=== PATIENT | female | born 1940 | race Caucasian/White ===

== ENCOUNTER 2019-08-01 20:37 | Inpatient (IN) | payer OTHER ==
[~2019-08-01] VITALS: Ht 160 cm; Wt 78.4 kg
[~2019-08-01 20:37] MED LIST: ACETASOL HC OTI10 M1 OT; DIFLUCAN200 MG PO; FENTANYL PATCH75 MCG TRANSDERM; INDERAL LA120 M1 PO; INDERAL60 MG PO; PERCOCET PO; PRAVACHOL40 MG PO; PROAIR RESPICL90 MCG IH; ST. JOSEPH ASPI81 M1 PO; TRIAMTERENE-HC1 EAC2 PO; VENLAFAXIN75 MG/1 T2 PO; XANAX 0.25 MG0.25 MG PO
[2019-08-01] MEDS ORDERED: TRAZODONE HCL50 MG PO (21:27)
[2019-08-01] MEDS ORDERED: FISH OIL 1,0001 EAC9 PO (21:28)
[2019-08-01] MEDS ORDERED: SIMVASTATIN40 MG PO (21:28)
[2019-08-01] MEDS ORDERED: COLACE100 MG PO (21:29)
[2019-08-01] MEDS ORDERED: MIRALAX17 GM PO (21:30)
[2019-08-01] MEDS ORDERED: DAILY VITE1 EACH PO (21:31)
[2019-08-01 22:00] VITALS: BP 162/67
[2019-08-01] MEDS ORDERED: CARAFATE 1 GM TA1 GM PO (22:37)
[2019-08-01] MEDS ORDERED: ZOLOFT25 MG PO (22:38)
[2019-08-01] MEDS ORDERED: ONDANSETRON HCL4 M3 PO (22:38)
[2019-08-01] MEDS ORDERED: ZYPREXA 5 MG TAB5 M2 PO (22:39)
[2019-08-01] MEDS ORDERED: NORVASC 2.5 MG2.5 M1 PO (22:40)
[2019-08-01] MEDS ORDERED: PROTONIX40 M2 PO (22:40)
[2019-08-01] MEDS ORDERED: VOLTAREN GEL 1100 G1 TOP (22:41)
[2019-08-01] MEDS ORDERED: DURAGESIC1 EAC4 TOP (22:42)
[2019-08-01] MEDS ORDERED: DIFLUCAN200 MG PO (22:43)
[2019-08-01] MEDS ORDERED: LAMICTAL100 MG PO (22:45)
[2019-08-01] MEDS ORDERED: PRAVACHOL40 MG PO (22:46)
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
[2019-08-02 07:41] VITALS: BP 185/63
--- NOTE | 2019-08-02 10:40 | NUR ---
0700 ASSUMED CARE OF PATIENT. PATIENT SITTING IN DAYROOM AT THAT TIME. 0730 PATIENT WALKING TO DAYROOM FROM PATIENTS ROOM AND WHEN MANAGER PRIMARY CARE STOPS TO TALK TO PATIENT, PATIENT STARTS TO CRY STATING "SORRY, IM NAUSEATED AND I KNOW I DID THIS TO MYSELF". "I ALLOWED TO LET THE NOISE OF THE STAFF AND TV IN THE DAYROOM GET TO ME". PATIENT SAYS THE STAFF WAS LAUGHING AND THE TV WAS REAL LOUD. MANAGER PRIMARY CARE AMB WITH PATIENT TO DAYROOM AND SITS AND TALKS WITH PATIENT. PATIENT RATES ANXIETY AT A 8 BUTHAS BEEN WAKING UP LIKE THIS EVERYDAY X1 WEEK. VOICED BEING DEPRESSED DUE TO SON AND BROTHER PASSING AND DAUGHTER LIVES IN [place] AND WILL NOT COME DOWN HERE. PATIENT IS UPSET AND WANTS TO TALK TO RESIDENTIAL GREEN BUILDING DESIGNER. RESIDENTIAL GREEN BUILDING DESIGNER NOTIFIED.
--- NOTE | 2019-08-02 11:30 | NUR ---
Nutrition: Pt admitted with major depressive disorder, SI. Seen due to high risk screen for poor intake, weight loss. Weight loss reported of 2% in 3 weeks. Not significant and current BMI 30.8. obesity class 1. Pt reports struggling with nausea in the am so unable to eat breakfast-on nausea. Did refuse breakfast this am. High opioid dependency. New admit, No H&P yet. Eats 2 meals/day, likes sandwiches. Discussed ordering meals and available choices as desired. Likes the meals served today. Refuses offer of supplements. RD will follow intake and weight trends but place as low risk d/t no planned interventions at present.
--- NOTE | 2019-08-02 11:39 | NUR ---
PATIENT CONCERNED OF BELONGINGS INCLUDING MONEY, DEBIT CARD AND LICENSE. SUPERVISOR PIPE MANUFACTURE LOOKED IN CHART AND A RECIEPT WAS IN CHART SHOWING ITEMS HAVE BEEN SENT TO SECURITY. SUPERVISOR PIPE MANUFACTURE TOOK RECIEPT TO PATIENT TO SHOW HER SHE HAS BEEN ANXIOUS ABOUT KNOWING WHERE HER ITEMS WERE. PATIENT SMILED AND HAPPY THAT WAS INFORMED ABOUT BELONGING. PATIENT SITTING ON COUCH QUIETLY AT THIS TIME.
--- NOTE | 2019-08-02 14:29 | NUR ---
SPARKLE received a phone call from Yaima Echavarria with [facility] stating that pt should not return home alone because it is unsafe. SPARKLE contacted her and was told that pt has a casemanager with [facility] named Diaz and that he has been with her a long time. She gave SW the number of [phone]. SPARKLE called given number and was told Diaz is no longer with the agency, but instead, her classification case manager is now Marycruz Pierson. SPARKLE left a for her. SW team will continue to follow pt during her stay on this unit.
--- NOTE | 2019-08-02 15:08 | NUR ---
[phone] Thalia attended and was an active participatant in group today. Karina from [facility] lead the group.
[2019-08-02 15:30] VITALS: BP 146/62
--- NOTE | 2019-08-02 15:30 | NUR ---
PT ATTENDED GROUP AT [phone]. PT LISTENING TO PROBATION AND PATROL AGENT AND SMILING.
[2019-08-02 19:59] VITALS: BP 161/59
[2019-08-02 23:10] VITALS: BP 161/59
--- NOTE | 2019-08-03 01:34 | NUR ---
Nursing note made by this nurse for this shift. However, note was made ad an addendum to previous note made by JOSE DE JESUS Castaneda at 1530.
[2019-08-03 08:40] VITALS: BP 189/73
[2019-08-03 11:00] VITALS: BP 143/49
--- NOTE | 2019-08-03 14:12 | NUR ---
Lying supine in bed. Alert and orientated X3. Denies SI/HI. Stated pain in back and shoulder was a 7 prior to fentanyl patch being replaced. Anxious at times but most of the time she is sitting in day room without s/o distress. Participating in groups. Breath sounds clear t/o, bilaterally equal. Reg HR auscultated. Color pink with brisk capillary refill and palpable peripheral pulses. +2 edema to lower extremities. Voiding independently. Active bowel sounds over soft, rounded abdomen. Steady gait when using walker to ambulate. BP repeated d/t HTN.
[2019-08-03 15:23] VITALS: BP 116/66
[2019-08-03 20:02] VITALS: BP 144/48
--- NOTE | 2019-08-03 20:56 | NUR ---
Care assumed of patient at 1915: Patient seated in dayroom, watching TV at start of shift. Patient smiling and waving staff as they arrive on unit. Patient appears calm, pleasant and cooperative. Patient has abnormal tremors to head which are baseline for this patient. Patient alert and oriented x4. Patient reports that she had a good day. Did request her PRN Xanax, reporting anxiety 12/05. Patient reports that she had a good visit with MD. Reports that the MD told her that she "can't change her daughter but can change herself". This seems to have made a large impact on patient and has given her multiple things to process. Patient denies SI/HI/AH/VH at this time. Reports that she "said some horrible things" before she arrived. No longer wishes to act on these statements. Denies depression. Reports chronic pain but does not want any medication for it at this time. Took HS medication whole without difficulty. Ate 100% HS snack. Currently seated in dayroom.
--- NOTE | 2019-08-04 07:40 | NUR ---
0710 ASSUMED CARE OF PATIENT. 0730 PATIENT SITTING IN DAYROOM ON COUCH WATCHING TV. PATIENT IS CALM, NOTED TREMORS TO HEAD, DENIES SI/HI/AH/VH, LUNG SOUNDS CLEAR, C/O PAIN TO BACK OF HEAD AND SHOULDERS RATES 7 ON NUMERIC PAIN SCALE. STATES ANXIETY IS BAD AND REQUESTS ANIETY MEDICATION. PATIENT STATES GOAL FOR THE DAY IS TO BE MORE INVOLVED IN GROUPS. PATIENTS CONCERN IS THAT SHE GETS NAUSEATED AT TIMES AND IS VERY UPSET IN REGARDS TO DAUGHTER NOT COMING TO SEE HER. WILL CONTINUE TO OBSERVE FOR BEHAVIORS.
[2019-08-04 08:51] VITALS: BP 159/68
[2019-08-04 19:10] VITALS: BP 120/60
--- NOTE | 2019-08-05 04:56 | NUR ---
ASSUMED CARE OF PT AT 1900HRS. ASSESSMENTS CHARTED. PT TOOK ALL PO MEDS WHOLE. PT DENIED SI/HI/AH/VH. PT REPORTED SOME ANXIETY AND PRN MEDS WERE GIVEN. PT DENIES ANY PAIN, NAUSEA OR SOA AT THIS TIME. PT WAS ABLE TO GO TO BED AT A DECENT HOUR AND APPEARED TO BE RESTING MOST OF THE NIGHT. VSS AND NO S/S OF ACUTE DISTRESS. WILL CONTINUR TO MONITOR.
[2019-08-05 07:59] VITALS: BP 155/52
--- NOTE | 2019-08-05 09:11 | NUR ---
SW completed a chart review and pt will likely need AL with Medicaid and these are limited
--- NOTE | 2019-08-05 10:45 | NUR ---
0700 ASSUMED CARE OF PATIENT. PATIENT IN BED AT THAT TIME. 0730 PATIENT UP AND GETTING READY TO COMEOUT TO DAYROOM FOR BREAKFAST. 0850 PATIENT C/O PAIN AND REQUESTS PAIN MED WITH OTHER MEDS. RATES PAIN A 8 ON NUMERIC PAIN SCALE. OXYCODONE 1 TAB PO GIVEN. PATIENT DOES ATTEND GROUP THIS AM.
--- NOTE | 2019-08-05 14:43 | NUR ---
CATRACHITA met with pt regarding placement and she would like to move into an [place]. CATRACHITA called a few places while pt was present and the options and amenities are what the pt wants. Catrachita then called Trey pt's friend [phone] and requested that she call the [place] and make appts to see them when this pt discharges later this week. Trey offered to set these up and will email any applications to this worker sot eh pt can fill them out and get ready. Pt will likely d/c back to her home and will assist with the move to [place]. Pt will need a psych Dr and therapist to see post discharge. CATRACHITA then called Miranda at [facility] [phone] and left a VM.
--- NOTE | 2019-08-05 15:10 | NUR ---
SPARKLE spoke with Miranda LEARY from [facility] and she stated that there is a f/u with pt at her home 08/11 at 11AM, Dr Everette Inman [facility] [place] [facility] [address] [place] [phone]. 08/13 at 11:15 AM for meds review. SPARKLE will FAX d/c summary and orders [phone].
--- NOTE | 2019-08-05 18:36 | NUR ---
PT HAS BEEN CALM AND COOPERATIVE TODAY. FAMILY HERE TO VISIT TODAY, WITH NIECE TAKING MAILBOX LIEBERMAN FROM PATIENTS PURSE WITH PATIENTS CONCENT. PATIENT CONTENT WATCHING TV AND COMMUNICATING WITH OTHER PATIENTS.DENIES NEEDS THIS EVENING
[2019-08-05 19:30] VITALS: BP 137/58
--- NOTE | 2019-08-06 04:47 | NUR ---
Assumed care of pt @ 1900. Pt calm et cooperative this shift. Ambulates the halls ad carlitos with assistance of walker et steady gait. Took medications whole without difficulty. Socialized with peers in dayroom until HS. Denies SI/HI this shift. VSWNL. Health assessment with no abnormalities other than previously documented. Requested PRN Oxycodone for pain. Currently resting in bed with eyes closed. Will continue to monitor per protocol.
[2019-08-06 09:10] VITALS: BP 159/62
--- NOTE | 2019-08-06 10:27 | NUR ---
Pt is currently on a waitlist for counseling services at [facility] per Sayra Roberts [phone].
--- NOTE | 2019-08-06 11:46 | NUR ---
Up ambulating in unit without s/o distress. Alert and orientated X4. Denies SI/HI. Ranks pain 6-7/10, fentanyl patch replaced. Calm and cooperative, participating in groups. Smiling and interactive. Ambulates with walker with steady gait. Breath sounds clear t/o, bilaterally equal. Reg HR auscultated. Color pink with brisk capillary refill and palpable peripheral pulses. Independent with voiding. Active bowel sounds over soft, rounded abdomen. 1045 Requesting oxycodone, states she knows that she can have one at this time. No s/o distress. Ranks pain 6-7. 1145 In dining room, visiting. States pain decreased to 3-4. No s/o distress.
--- NOTE | 2019-08-06 12:08 | NUR ---
Catrachita called and left a VM with Inga at [facility] [phone].
--- NOTE | 2019-08-06 15:16 | NUR ---
SPARKLE spoke with Sayra at [facility] [phone], FAX [phone] ATTN Sayra Echevarria and she stated that this pt woul dmove up the list for therapy when she d/c.
[2019-08-06 16:48] VITALS: BP 124/56
[2019-08-06 19:50] VITALS: BP 128/50
[2019-08-06 22:28] VITALS: BP 128/50
[2019-08-06 22:45] VITALS: BP 128/50
--- NOTE | 2019-08-07 00:42 | NUR ---
Assumed care of patient at change of shift. Pt. was sitting in TV room conversing with peers and watching TV. Pt. was asked if she minded this nurse completing her assessment in day room. She said "no". Assessment completed. Tremors noted to hands and head. These seem to worsen when she speaks or attempts to take medication. Pt. currently rates pain at 2/10 and no signs or symptoms of distress noted. 1+ BLE edema noted. Propanolol 20 mg. held due to pulse being 61. Pt. was informed of this and education done regarding med's affect on heart rate. She requested and was given xanax po for sleep at approximately 2200. Pt. acknowledges that she made statements regarding SI prior to hospitalization but she currently denies any SI. She also denies HI and hallucinations. Education also done regarding Fentanyl patch and pain control. .
--- NOTE | 2019-08-07 12:20 | NUR ---
CATRACHITA called and spoke with [facility] regarding housing and they have availabilty, and SW recieved the appliation. Whenpt was approached with this information she stated she wasn't sure she wanted to move. Catrachita reported this to Trey and suggested that this be encouraged. Catrachita also spoke with Yaima at [facility] and reported on the d/c plans and Yiama was satisfied with this outcome. Pt will d/c home on 08/07 at 10 am. Family to transport.
[2019-08-07 13:14] VITALS: BP 146/73
[2019-08-07 15:02] VITALS: BP 146/73
--- NOTE | 2019-08-07 15:17 | NUR ---
ASSUMED CARE AT 0700 THIS MORNING. HAS BEEN PLEASANT AND COOPERATIVE WITH STAFF THIS MORNING. TOOK MEDICATIONS WITHOUT PROBLEMS NOTED. WENT TO GROUPS AND ATE ON THE UNIT. DENIES SI/HI OR AVH. TALKING ABOUT LEAVING TOMORROW TO HOME.
[2019-08-07] MEDS ORDERED: ZOLOFT100 MG PO (17:05)
[2019-08-07 20:10] VITALS: BP 151/61
[2019-08-07 20:40] VITALS: BP 151/61
--- NOTE | 2019-08-08 05:51 | NUR ---
PATIENT UP IN DAY ROOM TONIGHT UNTIL BED. SHE WAS VERY PLEASANT AND COOPERATIVE AND HAPPY THAT SHE IS DISCHARGING TODAY. SHE STATES SHE FEELS STRONGER AND FEELS SHE HAS RECEIVED TREATMENT THAT HAS BEEN HELPFUL. SHE STATES THAT SHE HAS A TENDANCY TO ISOLATE SO SHE FOUND A COMMUNITY CENTER CALLED [facility] THAT MEETS AT [facility] AND PROVIDES ACTIVITIES, AND LUNCH THAT SHE IS WANTING TO VISIT WHEN SHE GETS OUT. ENCOURAGED HER TO SHARE WITH THIS INFO FOR FUTURE RESOURCES. PATIENT HAS BEEN SLEEPING THRU THE NIGHT. DENIES PAIN. BED IN LOW POSITION WITH ROUTINE ROUNDING FOR SAFETY ASSESSMENT.
[2019-08-08 08:59] VITALS: BP 177/54
[2019-08-08 09:14] VITALS: BP 177/54
--- NOTE | 2019-08-08 09:22 | NUR ---
SPARKLE faxed d/c summary and orders to Ihsan, JACKIE and YULISA. Provided pt with handout. Packet completed and left on chart. FAX confirmation with fax packet left on chart. Provided pt with application fr [facility] if needed.
[2019-08-08 09:49] VITALS: BP 177/54
--- NOTE | 2019-08-08 11:00 | NUR ---
ASSUMED CARE AT 0700 THIS MORNING. PT. WAS UP, DRESSED AND IN THE DINING ROOM. SHE IS PLEASANT AND COOPERATIVE. SHE CONTINUES TO HAVE TREMORS OF THE HEAD AND HANDS THAT INCREASES WHEN SHE IS TALKING. SHE TOOK HER MEDICATIONS THIS MORNING WITHOUT DIFFICULTY. SHE REQUESTED A XANAX. SHE WAS UPSET WITH HAVING TO WAIT FOR THE MEDICATION. SHE IS TO DISCHARGE THIS MORNING. SHE TOOK A SHOWER. HER FAMILY ARRIVED AT 1000 THIS MORNING AND WAS UPSET THAT DR. CLARK WAS HERE SOON THEY ARRIVED. SHE CAME IN SEVERAL MINUTES AFTER THEY ARRIVED. THEY WERE TAKEN TO THE SMALL CONFRENCE ROOM AND TEACHING COMPLETED WITH . CALLED THE PT. PHARMACY. AND GOT HER DISCHARGE MEDICATIONS ARANGED. THE FAMILY LEFT WITH THE PT. IN A W/C, STAFF GELATIN MAKER UTILITY TOOK THE PT. TO THE FAMILY CAR INFRONT OF THE HOSPITAL. THEY ALL LEFT WITH HER BELONGINGS, HER DISCHARGE PAPERS, SCRIPTS DEEMED NECESSARY. THEY LEFT FOR THE FAMILY HOME AT 1045.
== END 2019-08-08 11:13 | disposition home or self-care (01) | DRG 881 ==
LOC: SBH 20:37
PROVIDERS: ADMIT Psychiatry & Neurology Psychiatry
DX: F32.9 Major depressive disorder, single episode, unspecified (principal); F11.20 Opioid dependence, uncomplicated; R45.851 Suicidal ideations; F41.9 Anxiety disorder, unspecified; E78.5 Hyperlipidemia, unspecified; I10 Essential (primary) hypertension; Z96.659 Presence of unspecified artificial knee joint; G43.909 Migraine, unspecified, not intractable, without status migrainosus; Z88.6 Allergy status to analgesic agent; Z88.0 Allergy status to penicillin; Z88.8 Allergy status to other drugs, medicaments and biological substances; Z79.82 Long term (current) use of aspirin; Z79.899 Other long term (current) drug therapy; Z98.49 Cataract extraction status, unspecified eye; Z81.8 Family history of other mental and behavioral disorders
CPT/HCPCS: 10880

== ENCOUNTER 2019-08-17 23:43 | Inpatient (IN) | payer OTHER ==
[~2019-08-17] VITALS: Ht 160 cm; Wt 74.1 kg
[~2019-08-17 23:43] MED LIST changes: +CARAFATE 1 GM TA1 GM PO; +COLACE100 MG PO; +DAILY VITE1 EACH PO; +DURAGESIC1 EAC4 TOP; +FISH OIL 1,0001 EAC9 PO; +LAMICTAL100 MG PO; +MIRALAX17 GM PO; +NORVASC 2.5 MG2.5 M1 PO; +ONDANSETRON HCL4 M3 PO; +PROTONIX40 M2 PO; +SIMVASTATIN40 MG PO; +TRAZODONE HCL50 MG PO; +VOLTAREN GEL 1100 G1 TOP; +ZOLOFT100 MG PO; +ZOLOFT25 MG PO; +ZYPREXA 5 MG TAB5 M2 PO
[2019-08-18 01:01] VITALS: BP 145/49
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
[2019-08-18 07:18] VITALS: BP 175/67
[2019-08-18 09:36] VITALS: BP 176/67
--- NOTE | 2019-08-18 12:28 | NUR ---
ASSUMED CARE OF PT AT 0700. PT AWAKE AND ALERT, LYING IN BED. PT REPORTS PAIN IN BILATERAL SHOULDERS 08/05, REFUSED PRN TYLENOL AND STATED, "WHERE'S MY PERCOCET?" PT INFORMED THAT PERCOCET IS NOT CURRENTLY ON MAR AND COULD NOT BE GIVEN UNTIL SPEAKING WITH PYONELCIAN (IF HE ORDERS). PT GIVEN AND TOLERATED ALL SCHEDULED MORNING MEDS. PT AMBULATED VIA WALKER TO DINING AREA FOR MEALS. PT BECOMES TEARFUL AT TIMES BUT COOPERATIVE. PT DENIES SI/HI AND DENIES AH/VH. WILL CONTINUE TO MONITOR.
[2019-08-18 15:07] LABS: HEMATOCRIT 38.5 % (37.0-47.0); HEMOGLOBIN 12.6 gm/dL (12.0-15.0); MCH 26.9 pg (26.0-34.0); MCHC 32.6 g/dL (28.0-37.0); MCV 82.6 fL (80.0-100.0); RBC 4.67 mil/uL (4.20-5.00); RDW 14.5 % (10.5-14.5); WBC 6.5 thou/uL (4.0-11.0)
[2019-08-18 15:20] LABS: % SATURATION 8 % (20-39); IRON 25 ug/dL (50-170); TIBC 313 ug/dL (250-450)
[2019-08-18 15:22] LABS: ALBUMIN 3.7 g/dL (3.4-5.0); CALCIUM 8.9 mg/dL (8.5-10.1); MAGNESIUM 1.6 mg/dL (1.8-2.4); POTASSIUM 3.1 mmol/L (3.5-5.1); TOTAL BILIRUBIN 0.3 mg/dL (<0.1-1.0); TOTAL PROTEIN 6.5 g/dL (6.4-8.2)
[2019-08-18 15:50] LABS: TSH 1.097 uIU/mL (0.358-3.740)
[2019-08-18 19:31] VITALS: BP 126/49
--- NOTE | 2019-08-18 23:52 | NUR ---
Pt alert and oriented x4. Ptwas in the dayroom at time of assessment. Pt was very pleasant and cooperative, smiling. Pt denies anxiety or depression. Pt denies SI/HI/VH/AH. Pt took meds whole. Pt had HS snacks. Pt currently in bed sleeping. Will continue to monitor.
[2019-08-19 05:15] LABS: HEMATOCRIT 33.5 % (37.0-47.0); HEMOGLOBIN 11.2 gm/dL (12.0-15.0); MCH 27.2 pg (26.0-34.0); MCHC 33.4 g/dL (28.0-37.0); MCV 81.6 fL (80.0-100.0); RBC 4.1 mil/uL (4.20-5.00); RDW 14.3 % (10.5-14.5); WBC 6.6 thou/uL (4.0-11.0)
[2019-08-19 05:35] LABS: CALCIUM 8.6 mg/dL (8.5-10.1); CREATININE 0.9 mg/dL (0.6-1.0); MAGNESIUM 1.7 mg/dL (1.8-2.4); POTASSIUM 3.2 mmol/L (3.5-5.1)
[2019-08-19 08:25] VITALS: BP 164/71
--- NOTE | 2019-08-19 12:10 | NUR ---
Sw met with pt to discuss d/c plans. This included attempting a SNF stay, filling out the application for [facility] again, and applying for [place] medicaid, unles this was already completed by [facility]. Sw completed the SLUMS and pt scored .
--- NOTE | 2019-08-19 13:57 | NUR ---
SW met with pt and she filled out the housing application and sw reached out to [facility] and they have availabilty,
--- NOTE | 2019-08-19 15:31 | NUR ---
[id number] PLEASANT AND COOPERATIVE. PERCOCET GIVING FOR C/O SHOULDER PAIN. GOOD APPETITE FOR MEALS. PARTCIPATED IN GROUP THERAPY. AMBULATES WITH SLOW STEADY GAIT USING ROLLER WALKER.
[2019-08-19 19:20] VITALS: BP 124/58
--- NOTE | 2019-08-19 22:36 | NUR ---
PROGRESS PT A/O X4 ABLE TO VERBALIZE FEELINGS AND NEEDS. DISCUSSED SI AND PT DENIED ANY THOUGHTS OR FEELINGS OF SUICIDE, EXPRESSED HOPE AT FINDING A NEW LIVING ARRANGEMENT WITH MORE SOCIAL OPPORTUNITIES. DID GET UPSET THAT XANAX WAS DISCONTINUED AND BEDSIDE TABLE WAS IN HER ROOM. SHE THOUGHT SHE WOULD HAVE TO EAT ALL HER MEALS IN HER ROOM.WHEN I EXPLAINED THEY JUST LEFT IT IN THERE FOR STORAGE OR INCASE SHE WANTED TO USE IT AGAIN SHE UNDERSTOOD AND CALMED DOWN. AMBULATING WITH WALKER GAIT STEADY. SOME HAND TREMORS NOTED SHE REPORTED THEY CAUSE HER ANXIETY TO INCREASE AND THATS WHY SHE NEEDS THE XANAX. I CALLED AND SPOKE WITH WHO ORDERED A ONETIME DOSE OF ATIVAN 0.5 MG PO IT WAS GIVEN WITH EFFECT PT WENT TO BED AFTER.
[2019-08-20 08:46] VITALS: BP 162/78
--- NOTE | 2019-08-20 09:14 | NUR ---
ASSUMED CARE OF PT AT 0700. PT IN BED AWAKE AND TEARFUL. PT STATES, "I'M NOT DOING WELL... 'THEY' TOOK MY PAIN MEDICATION AWAY FROM ME AND I'M NOT HAPPY ABOUT IT." PT ADVISED THAT I WOULD SPEAK TO THE DR. ONCE HE GETS IN THIS MORNING TO INQUIRE ABOUT IT. PT WAS RECPTIVE AND AGREED TO TAKE HER SCHEDULED MORNING MEDS. MEDS TAKEN WITHOUT DIFFICULTY. PT STATES HER PAIN IS CURRENTLY AN 8/10 IN HER LEFT KNEE. PT TOOK PRN TYLENOL AROUND 0500 AND REPORTED MINIMAL RELIEF. PT REFUSED BREAKFAST, STATING, "I'M TOO UPSET TO EAT". PT CURRENTLY IN BED RESTING AND SAYS SHE'LL GET UP ONCE THE DR. GETS HERE. PT DENIES SI/HI AND DENIES AH/VH. WILL CONTINUE TO MONITOR.
[2019-08-20 10:29] VITALS: BP 135/63
--- NOTE | 2019-08-20 12:19 | NUR ---
SW met with pt and she completed the application for [employer]. Still need to have 6 months of bank statements and SS award letter, and $25 cashiers check. Will check with bharath Yang if she wants to help with these items.
--- NOTE | 2019-08-20 13:17 | NUR ---
Catrachita spoke with Trey and she reported that she would do to the pt;s home and look for bank statements and the SS award letter. Catrachita will help pt get the money order.
--- NOTE | 2019-08-20 15:03 | NUR ---
SW did a check in with pt instead of group due to COVID-19 guidelines. Pt said she is somewhat happy to be back. She said she knows she needs the help. She was in a pleasant mood.
[2019-08-20 19:40] VITALS: BP 142/65
--- NOTE | 2019-08-21 02:54 | NUR ---
Assumed care of patient this pm shift. Patient sitting in the mileu with peers watching tv. Patient calm and cooperative. Patient was fearful of reducing her pain medications. Patient had many questions about her medications and how weaning off of pain medications can be accomplished. All medications and functions that patient recieved this evening were explained and this eased her anxiety significantly. Patient interacted with RN and sang the Juanita with RN. Patient is very pleasant. Patients assessment shows clear breath sounds, active bowel sounds, and s1 s2 heard with auscultation. Patient denies pain. Patient denies hi/si. Patients affect normal. We will continue to monitor patient.
[2019-08-21 09:00] VITALS: BP 168/59
--- NOTE | 2019-08-21 09:51 | NUR ---
0700 ASSUMED CARE OF PATIENT, PATIENT IN BED AT THIS TIME WITH EYES CLOSED. 0740 PATIENT IN DAYROOM SITTING AT TABLE WAITING FOR BREAKFAST. 0900 LUNG SOUNDS CLEAR, BS ACTIVE, C/O PAIN TO LEFT KNEE RATES AT A 7-8. TYLENOL 650MG PO GIVEN. PATIENT IS CALM AND COOPERATIVE, DENIES SI/HI/AH/VH. WILL CONTINUE TO OBSERVE FOR BEHAVIORS.
--- NOTE | 2019-08-21 13:58 | NUR ---
SW met with pt to discuss her d/c plans. SW suggested that she begin a movign plan while she is waiting to d/c. Pt was happy to do this and Sw provided her a pen and paer. Catrachita will follow up with Miranda at [facility] and [facility] for her outpt needs. This may include cm for moving expenses and a depost for her new place. Sw contacted [facility] and will submit her application later this week. Pt will work on getting her 6 months of bank statements and her SS letter. Pt is able to follow though with these tasks.
--- NOTE | 2019-08-21 14:47 | NUR ---
YULISA : Miranda [phone] FAX [phone] JACKIE: Sayra [phone] FAX [phone]
--- NOTE | 2019-08-21 19:02 | NUR ---
PATIENT SITTING ON COUCH QUIETLY WITH NO COMPLAINTS OR NEEDS. REPORT GIVEN TO ONCOMING SHIFT
[2019-08-21 19:36] VITALS: BP 159/66
[2019-08-21 22:11] VITALS: BP 159/66
--- NOTE | 2019-08-22 01:10 | NUR ---
Assumed care at change of shift. Pt. was sitting on couch watching TV with peers. She was freely conversing, and had a smile on her face. Head and hand tremors were noticed and unchanged. Pt. was assisted to bed at approximately 2230 where pain gel was applied to left knee. She voiced no other complaints and asked for lights to be turned out.
[2019-08-22 08:45] VITALS: BP 145/56
--- NOTE | 2019-08-22 08:58 | NUR ---
08/21/19 Sw and pt met to create her Social Security online portal to get her SS award letter. This was completed. Catrachita called with pt present and requested 6 months of bank statements from [employer] and they emailed them to this workers email [email or web address] with pt permission. These were all printed off, then scanned and emailed to Dotty at [facility] with the completed and signed application packet. CATRACHITA also reinforced that pt can spend her next few days making plans about the move.
--- NOTE | 2019-08-22 12:52 | NUR ---
PT A&OX4, DENIES SI/HI. PATIENT COOPERATIVE AND SMILING. PATIENT INTERACTS WITH PEERS AND PARTICIPATES IN ACTIVITIES. PATIENT EATS WELL. WILL CONTINUE TO MONITOR.
--- NOTE | 2019-08-22 14:14 | NUR ---
Catrachita spoke with Miranda from [employer], and she confimred that they fraideh be able to helpw ith pt with her deposit and moving costs. Sw then left a vmw toñ[employer] and requested funds from them too. Catrachita also spoke with pt and she understands she will need to go to the bank as she leaves the hopital on monday and take the application fee in a cashiers check to [facility].
--- NOTE | 2019-08-22 14:20 | NUR ---
Sw met with pt to check in and she is feeling ahppy about moving and his making plans. No gorup due to covid 19 restrictions
[2019-08-22 19:40] VITALS: BP 142/58
[2019-08-22 20:20] VITALS: BP 142/58
--- NOTE | 2019-08-22 23:17 | NUR ---
PT ASSESSMENT DONE AND VSS. MEDS GIVEN AND WELL TOLERATED. FALL PRECAUTIONS IN PLACE. VISITNG IN THE ACTIVITY ROOM WITH ANOTHER PT. SMILING AND CHEERFUL. WENT TO BED AFTER MED PASS. WILL CONTINUE TO MONITOR.
--- NOTE | 2019-08-23 06:43 | NUR ---
Patient observed sitting in bed this AM, crying, screaming, rocking, yelling "I can't, I can't", face reddened, breathing heavy. Patient stating that she was taken off of her Xanax and Percocet which is "just not right". Education completed with the increase in Fentanyl patch to control pain. Patient refuses diversional activity, refused to come out of room. Patient provided PRN Seroquel. Patient educated that she had received the medication yesterday around this same time which was able to get her anxiety decreased so she could start the day. Patient sobs that her anxiety wasn't this bad yesterday and "it will not work". Encouraged patient to allow medication time to work, take deep breaths. Patient being quite negative this AM regarding medication being helpful for her anxiety. Will notify day shift nurse of medication administration.
[2019-08-23 07:40] VITALS: BP 125/53
--- NOTE | 2019-08-23 09:32 | NUR ---
Sw completed chart review and pt seems to be more anxious this AM, and argumentaiev and negative with staff.
[2019-08-23 10:15] VITALS: BP 125/52
--- NOTE | 2019-08-23 11:40 | NUR ---
1130 RESUMMED CARE FROM OVERNIGHT SHIFT THIS AM, PATIENT IN ROOM GETTING HYGIENE DONE FOR BREAKFAST. PATIENT ATE BREAKFAST TOOK MEDICATION WITHOUT INCIDENCE. PATIENT'S ABDOMEN SOFT ROUND BOWEL SOUNDS PRESENT IN ALL 4 QUADRANTS. PATIENT LUNGS CLEAR PATIENT HAS HEAD AND RT HAND TREMOR, PATIENT DENIES SI/HI/AH/VH AT PRESENT. PATIENT IS PLEASANT SHE IS WORRIED ABOUT HER NEW PLACEMENT SHE HAS TO GO TO. SHE STATES HER DAUGHTER IN [place] DOES NOT WANT TO TAKE CARE OF HER. SHE PARTICIPATES IN GROUPS AND TALKS WITH OTHER PATIENTS. WILL CONTINUE TO MONITOR PATIENT FOR SAFETY AND BEHAVIORS.
--- NOTE | 2019-08-23 13:28 | NUR ---
SPARKLE met with pt to discuss her plans and provided her a handout about her new place. Pt was very happy that [facility] has offered t pay for her deposit and moving expenses. SPARKLE scanned adn sent the application after going to security and making a copy of her DL. No group due to COVID 19 restrictions
--- NOTE | 2019-08-23 15:21 | NUR ---
WEB WEAVER met with pt to offer independent leisure. Pt was seated on couch in the day room with peers. She appeared irritable and short in conversation, declining participation in anything other than television and conversation with a male friend whom she has befriended.
[2019-08-23 20:05] VITALS: BP 126/57
--- NOTE | 2019-08-23 23:01 | NUR ---
Assumed care of patient at change of shift. She was sitting in day room conversing with peers and watching TV. She explained discharge plans to this nurse. She states that she is going to [facility] [address] in [place]. She will be discharging back to her home first and then move to new apartment in [facility]. She was very appreciative of Social Workers' help in arranging all of this. She could speak to her plan regarding selling some furnishings and retaining others for move to her new apartment. She says she is happy to move from her home to the apartment where other people will be present so she won't feel so lonely. Pt. is up ad carlitos with walker and a slow and steady gait. She denies pain and no signs or symptoms noted.
[2019-08-24 02:38] VITALS: BP 126/57
[2019-08-24 08:30] VITALS: BP 137/52
--- NOTE | 2019-08-24 12:32 | NUR ---
Sitting up in day room most of morning participating in groups and conversing with peers. Requesting quetiapine d/t anxiety of 02/05, states she is very anxious d/t loud pt. that is talking constantly. Alert and orientated X4, denies SI/HI, focused on preparing for discharge. States pain has improved from this AM, currently a 5/10. Breath sounds clear t/o, bilaterally equal. Reg HR auscultated. Color pink with brisk capillary refill and palpable peripheral pulses. +2 nonpitting edema in lower extremities. Independent with voiding. Active bowel sounds over soft, rounded abdomen. Erythematous and slightly excoriated area under L abdominal fold with slightly malodorous smell. Cleaned and dried, spoke with Dr. Barahona, states he will place order for Nystatin. States she had a bowel movement yesterday, miralax held per pt. request. Regular, slow gait with walker. 1230 Eating lunch with peers. Happy and interactive.
--- NOTE | 2019-08-24 13:08 | NUR ---
0900 PATIENT PARTICPATED IN THE EXERCISE GROUP SHE STATED THAT THIS IS WHAT SHE NEEDED. THE PURPOSE OF THE GROUP IS FOR MUSCLE STRENGTHENING AND STRETCHING. 1000 THIS GROUP WAS A JAZZ MUSIC GROUP WITH CONVERSATION, PATIENT WAS VERY INTERACTIVE WITH THIS GROUP. PATIENT STATES THIS MAKES HER FEEL THAT WE REALLY CARE.
[2019-08-24 20:26] VITALS: BP 99/38
--- NOTE | 2019-08-24 21:48 | NUR ---
Assumed care at change of shift. Pt. sitting in day room conversing with peers and watching TV. She is smiling as she is partaking in conversations. Denies pain and no signs or symptoms of distress noted.
[2019-08-25 05:32] VITALS: BP 99/38
[2019-08-25 08:45] VITALS: BP 148/79
--- NOTE | 2019-08-25 15:20 | NUR ---
Pleasant, cooperative with meds. Med compliant. Upset when TV was turned off due to unit argument between a couple of patients. Conversant with select peers. Denies SI/HI, A/VH. No delusional content to conversation. Amb. without difficulty. Out of room most of the shift.
[2019-08-25 19:15] VITALS: BP 131/57
--- NOTE | 2019-08-26 04:13 | NUR ---
ASSUMED CARE OF PT AT 1900HRS. PT IS AOX4 AND LETS NEEDS BE KNOWN. PT IS UP WITH A WALKER. PT AWAS ABLE TO TAKE HS MEDS WHOLE. PT REQUESTED SOME PAIN MEDS WHICH WAS PROVIDED. PT WAS CALM AND COOPERATIVE. ASSESSMENTS CHARTED. PT WAS ABLE TO GET COMFORTABLE AND SLEEP PART OF THE SHIFT. VSS AND NO S/S OF ACUTE DISTRESS. WILL CONTINUE TO MONITOR.
[2019-08-26 09:02] VITALS: BP 139/52
[2019-08-26 10:21] VITALS: BP 139/62
[2019-08-26 10:36] VITALS: BP 139/62
--- NOTE | 2019-08-26 10:48 | NUR ---
SPARKLE confirmed a 12 pm steel pickler with amira and Pt, including [facility] [place] staff. Packet was made and left on nirmala. SPARKLE provided pt with copies of her Apartment application, supporiting documentation and her [place] medicad application. SPARKLE faxed updates to [facility] and [facility]. Confiramtion of fax packet left on chart.
[2019-08-26 10:54] VITALS: BP 139/62
--- NOTE | 2019-08-26 11:01 | NUR ---
ASSUMED CARE AT 0700. PT AWAKE AND GETTING DRESSED IN ROOM. PT COOPERATIVE AND PLEASANT. PT AMBULATED TO DAYROOM FOR MEALS W/WALKER. PT REPORTS PAIN OF 7/10 IN BILATERAL SHOULDERS AND R. KNEE. PT REPORTS MINIMAL RELIEF FROM FENTANYL PATICHES. STATES, SHE TOOK PRN TYLENOL ("ABOUT AN HOUR AGO") W/MINIMAL RELIEF. PT GIVEN AND TOLERATED MORNING MEDS WITHOUT DIFFICULTY. PT DENIES SI/HI/AH/VH. PER SW, PT WILL BE DISCHARGING TODAY AROUND NOON. PT AWARE. DISCHARGE CURRENTLY IN PROGRESS.
[2019-08-26] MEDS ORDERED: IRON325 PO (11:09)
[2019-08-26] MEDS ORDERED: PROPRANOLOL 1010 MG PO (11:10)
[2019-08-26] MEDS ORDERED: DURAGESIC1 EACH TRANSDERM (11:11)
[2019-08-26] MEDS ORDERED: DURAGESIC1 EAC4 TRANSDERM (11:12)
[2019-08-26] MEDS ORDERED: ZOLOFT 50 MG TA50 M1 PO (11:13)
[2019-08-26] MEDS ORDERED: LAMICTAL200 MG PO (11:13)
[2019-08-26] MEDS ORDERED: ZYPREXA 5 MG TAB5 M1 PO (11:14)
[2019-08-26] MEDS ORDERED: MIRALAX17 GM PO (11:15)
[2019-08-26] MEDS ORDERED: PROTONIX40 M1 PO (11:15)
--- NOTE | 2019-08-26 13:10 | NUR ---
PT DISCHARGED AT 1300. PT TAKEN TO FRONT ENTRANCE, VIA W/C, TO MEET NIECE. PT DISCHARGED WITH BELONGINGS, HOME MEDS, HARD COPY OF RX'S, CANE AND D/C SUMMARY. PT DENIES SI/HI/AH/VH.
--- NOTE | 2019-08-27 09:58 | NUR ---
SPARKLE made appt for pt to see Dr Stephen Lucas for psych follow up [phone] 09/05 at 10:30 AM. SPARKLE then called and reported this to pt. SPARKLE faxed he d/c orders and summary [phone] FAX. JFS reported that there is a therapist that will be seeing her via tele tomorrow 08/28/19.
--- NOTE | 2019-08-28 17:12 | D ---
[facility] [place] [address] DISCHARGE SUMMARY Name: NERIS WELDON Room #: 521A-A [facility] IN M.R.#: [id number] Admission: 08/18/19 Attend Phys: Parag Zelaya DO Discharge: 08/26/19 Date of : 36 Report #: [id number] THIS REPORT FOR: cc: Miguel Angel Austin MD,Miguel Angel Zelaya,Parag Myers DO ~ THIS REPORT FOR: //name// CC: Parag Austin DATE OF SERVICE: 08/26/2019 ATTENDING PHYSICIAN: Parag Zelaya DO SHEET METAL ROOFER AT THE TIME OF DISCHARGE: Parag Barahona MD DISCHARGE DIAGNOSES: Major depressive disorder, recurrent, severe degree, improved. Also, the patient has chronic pain disorder; fibromyalgia by history; hypertension; essential tremors, on propranolol; hyperlipidemia, on statin; gastroesophageal reflux disease. DISCHARGE PLAN: She was initially discharged to her independent living apartment with later plans in the next month or so to move to assisted living. The patient's aftercare is noted to be [facility]. diet: heart healthy activity: as tolerated no alcohol, no illicit drugs follow up: 09/06/2019 Dr. Angelika Engle Psychiatrist at 10:30 televideo session with [facility] on 08/28/2019 time TBD DISCHARGE MEDICATIONS: As follow: Ferrous sulfate 325 mg p.o. b.i.d. for supplementation; propranolol 10 mg at 0800, 1400 and 2200 for tremor; fentanyl 25 mcg patch every 72 hours and 12 mcg patch every 72 hours for chronic pain. Her discharge pain level was 4-5. Lamotrigine 100 mg p.o. b.i.d. for mood stabilization, sertraline 150 mg p.o. daily for depression, olanzapine 5 mg p.o. daily for augmentation of depression, MiraLax 17 g p.o. daily for bowel [facility] [address] [place] [address] DISCHARGE SUMMARY Name: NERIS WELDON Room #: 52-A [facility]..#: [id number] Admission: 08/18/19 Attend Phys: Parag Zelaya DO Discharge: 08/26/19 Date of : 36 Report #: [id number] motility, pantoprazole 40 mg p.o. daily, aspirin 81 mg p.o. daily for cardioprotection, sucralfate 1 tab p.o. 4 times a day for dyspepsia, amlodipine 2.5 mg p.o. daily for hypertension, diclofenac gel 4 grams topical 3 times a day with 1% gel for arthritic pain and pravastatin 40 mg p.o. daily for hyperlipidemia. Seroquel 12.5 mg oral every 4 hours as needed for anxiety The patient is not to resume alprazolam or oxycodone or daily trazodone. REASON FOR ADMISSION: Back on 08/18/2019 is as follows: Apparently, she was upset about her daughter not wanting to come see her and she was thinking of harming herself, so she was admitted for protection. HOSPITAL COURSE: The patient was admitted to geriatric psychiatry unit as she had been recently discharged from Dr. Oden's service and has some additional history. It was felt the patient had been noncompliant with aftercare followup and probably did need to move to a more supportive setting. Also, the patient was on multiple controlled substances which is a concern, especially if she is in independent living, so we can then set down facilitating some extra fentanyl via the transdermal patch. The patient's mood improved. The patient was more collaborative in her care as the admission proceeded. The day of discharge, she was not suicidal or homicidal, felt to be stable for discharge to the least restrictive setting. PHYSICAL EXAMINATION: VITAL SIGNS: Temperature is 36.9, pulse 62, respirations 18, BP 139/62, O2 sat 95%. MUSCULOSKELETAL: Ambulating, using walker. Otherwise, normal station. MENTAL STATUS EXAMINATION: This is a well-developed, ill-appearing female, appearing stated age. Attention fair. Concentration fair. Speech is normal, rate, rhythm, tone. Thought process linear and goal directed. Thought content focused on discharge. Mood and affect congruent and euthymic, fair range and smiling. No psychomotor agitation. No psychomotor retardation. Denied SI or HI. Denied hopelessness, helplessness. Memory not formally tested today. Insight fair. Judgment fair. Fund of knowledge above average. PROGNOSIS: For this patient is guarded and it will depend if she does follow through with moving on to assisted living and being proactive and preserving her mental health. <ELECTRONICALLY SIGNED> By: Parag Zelaya DO 08/28/19 1712 40 12 Parag Zelaya DO /nt
== END 2019-08-26 13:00 | disposition home or self-care (01) | DRG 885 ==
LOC: SBH
PROVIDERS: Internal Medicine; ADMIT Psychiatry & Neurology Psychiatry
DX: F33.9 Major depressive disorder, recurrent, unspecified (principal); R45.851 Suicidal ideations; I10 Essential (primary) hypertension; E78.5 Hyperlipidemia, unspecified; K21.9 Gastro-esophageal reflux disease without esophagitis; M19.90 Unspecified osteoarthritis, unspecified site; M79.7 Fibromyalgia; F41.9 Anxiety disorder, unspecified; E87.6 Hypokalemia; E83.42 Hypomagnesemia; G25.0 Essential tremor; G89.4 Chronic pain syndrome; Z79.82 Long term (current) use of aspirin; Z88.6 Allergy status to analgesic agent; Z88.0 Allergy status to penicillin; Z88.8 Allergy status to other drugs, medicaments and biological substances; Z79.899 Other long term (current) drug therapy
CPT/HCPCS: 10880